=== PATIENT | male | born 1990 | race African-American/Black ===

== ENCOUNTER 2019-04-06 17:15 | Emergency (ER) | payer OTHER ==
[~2019-04-06] VITALS: Ht 190.5 cm; Wt 104.0 kg
[~2019-04-06 17:15] MED LIST: MELO15TA3 PO; MINI2CAP PO; NEUR300C PO; NO MEDICATION; TRAZ100T2 PO; ZOLO100T PO; ZOLO50TA PO
[2019-04-06] MEDS ORDERED: IBUP200T45 PO (18:19)
[2019-04-06] MEDS ORDERED: KETOROLAC 60 MG/2 ML VIAL (J1885) IM ONE (18:45)
[2019-04-06] MEDS ORDERED: LIDOCAINE 5% (LIDODERM) PATCH TD ONE (18:45)
[2019-04-06] MEDS ORDERED: diazePAM 10 MG TAB PO ONE (18:45)
[2019-04-06] MEDS ORDERED: ROBA500T PO (18:48)
[2019-04-06] MEDS ORDERED: NAPR-837 PO (18:48)
[2019-04-06 19:20] VITALS: BP 118/62
[2019-04-06] MEDS ORDERED: **NOTE PATIENT COMMENT** MISC XX SCH (21:00)
== END 2019-04-06 19:21 | disposition home or self-care (01) ==
LOC: M ED 17:15
DX: S39.012A Strain of muscle, fascia and tendon of lower back, initial encounter (principal); X58.XXXA Exposure to other specified factors, initial encounter; Y92.89 Other specified places as the place of occurrence of the external cause; Z88.1 Allergy status to other antibiotic agents; Z88.2 Allergy status to sulfonamides; Z88.8 Allergy status to other drugs, medicaments and biological substances; F17.210 Nicotine dependence, cigarettes, uncomplicated
CPT/HCPCS: 96372; 99283; J1885

== ENCOUNTER 2019-07-30 22:08 | Emergency (ER) | payer OTHER ==
[~2019-07-30] VITALS: Ht 190.5 cm; Wt 114.5 kg
[2019-07-30 22:08] VITALS: BP 133/62
[~2019-07-30 22:08] MED LIST changes: +IBUP200T45 PO; +NAPR-837 PO; +ROBA500T PO
[2019-07-30] MEDS ORDERED: ACET-683 PO (22:14)
[2019-07-30] MEDS ORDERED: ONDANSETRON 4 MG ORAL DISINTEGRATING TAB (Q0162 PER 1MG) PO ONE (22:30)
[2019-07-30] MEDS ORDERED: ACETAMINOPHEN 500 MG TAB PO ONE (22:30)
[2019-07-30] MEDS ORDERED: AMOX500C PO (22:48)
[2019-07-30] MEDS ORDERED: AMOXICILLIN 500 MG CAP PO ONE (23:00)
[2019-07-30 23:06] LABS: INFLUENZA A AMPLIFICATION NEGATIVE (NEGATIVE); INFLUENZA B AMPLIFICATION NEGATIVE (NEGATIVE)
[2019-07-30] MEDS ORDERED: ONDA4TAB6 PO (23:11)
--- NOTE | 2019-07-31 08:16 | REP ---
Clinical: Cough and fever. Technique: PA and lateral. Comparison: None. Findings: Lateral view best suggests left lower lobe atelectasis/early infiltrate and correlation is recommended. No further consolidation, effusion, or pneumothorax. Mediastinum and cardiac silhouette normal. Skeletal structures intact. Impression: Suspected left lower lobe infiltrate/atelectasis. Electronically Signed by Jignesh Henry MD 07/31/2019 08:08 A
== END 2019-07-30 23:15 | disposition home or self-care (01) ==
LOC: M ED 22:08
DX: J18.9 Pneumonia, unspecified organism (principal); Z88.2 Allergy status to sulfonamides; Z88.8 Allergy status to other drugs, medicaments and biological substances; F17.210 Nicotine dependence, cigarettes, uncomplicated; Z20.89 Contact with and (suspected) exposure to other communicable diseases
CPT/HCPCS: 71046; 87502; 99283; Q0162

== ENCOUNTER 2020-02-27 03:13 | Emergency (ER) | payer OTHER ==
[~2020-02-27 03:13] MED LIST changes: +ACET-683 PO; +AMOX500C PO; +ONDA4TAB6 PO
[2020-02-27] MEDS ORDERED: NS 1,000 ML IV ONE ×3 (03:15→04:30)
[2020-02-27] MEDS ORDERED: diphenhydrAMINE 50MG/ML VIAL (J1200) IM ONE (03:15)
[2020-02-27] MEDS ORDERED: LORazepam 2 MG/ML VIAL IM ONE (03:15)
[2020-02-27] MEDS ORDERED: HALOPERIDOL 5MG/ML VIAL (J1630 PER 1) IM ONE (03:15)
[2020-02-27] MEDS ORDERED: HALOPERIDOL 5MG/ML VIAL (J1630 PER 1) As Ordered ONE (03:19)
[2020-02-27] MEDS ORDERED: LORazepam 2 MG/ML VIAL IV STA (03:26)
[2020-02-27 03:33] LABS: BASO % 0.4 % (0.0-1.0); EOS # 0.1 10^3/uL (0.0-0.5); EOS % 1.4 % (0.0-3.0); HEMATOCRIT 41.3 % (42.0-52.0); HEMOGLOBIN 13.9 g/dl (13.5-17.5); LYMPH # 3.1 10^3/uL (1.5-5.0); LYMPH % 32.2 % (24.0-44.0); MEAN CORPUSCULAR HEMOGLOBIN 28.6 pg (27.0-33.0); MEAN CORPUSCULAR HGB CONC 33.7 g/dl (32.0-36.5); MONO # 0.6 10^3/uL (0.0-0.8); MONO % 6.1 % (0.0-5.0); NEUTROPHILS # 5.8 10^3/uL (1.5-8.5); NEUTROPHILS % 59.4 % (36.0-66.0); PLATELET COUNT, AUTOMATED 229 10^3/uL (150-450); RED BLOOD COUNT 4.86 10^6/uL (4.30-6.10); WHITE BLOOD COUNT 9.7 10^3/uL (4.0-10.0)
[2020-02-27 04:02] LABS: ACETAMINOPHEN LEVEL < 2.0 UG/ML (10.0-30.0); ALBUMIN 4.6 GM/DL (3.2-5.2); ALT/SGPT 37 U/L (12-78); AMPHETAMINES LEVEL URINE NEGATIVE (NEGATIVE); BARBITURATES URINE NEGATIVE (NEGATIVE); BENZODIAZEPINES URINE NEGATIVE (NEGATIVE); BILIRUBIN,DIRECT 0.1 MG/DL (0.0-0.2); BILIRUBIN,TOTAL 0.4 MG/DL (0.2-1.0); BLOOD UREA NITROGEN 13 MG/DL (7-18); CALCIUM LEVEL 8.8 MG/DL (8.5-10.1); CANNABINOIDS URINE POSITIVE (NEGATIVE); CARBON DIOXIDE LEVEL 20 MEQ/L (21-32); CHLORIDE LEVEL 110 MEQ/L (98-107); COCAINE METABOLITE URINE NEGATIVE (NEGATIVE); CPK CREATINE PHOSPHOKINASE 312 U/L (39-308); ETHYL ALCOHOL (ETHANOL) 0.262 % (0.000-0.010); GLOMERULAR FILTRATION RATE > 60.0 (>60); GLUCOSE, FASTING 72 MG/DL (70-100); METHADONE URINE NEGATIVE (NEGATIVE); OPIATES URINE NEGATIVE (NEGATIVE); PHENCYCLIDINE URINE NEGATIVE (NEGATIVE); POTASSIUM SERUM 3.6 MEQ/L (3.5-5.1); SALICYLATE LEVEL 3.4 MG/DL (5.0-30.0); SODIUM LEVEL 146 MEQ/L (136-145); THYROID STIMULATING HORMONE 0.976 uIU/ML (0.358-3.740); TOTAL PROTEIN 8.6 GM/DL (6.4-8.2)
--- NOTE | 2020-02-27 04:28 | REPVR ---
PROCEDURE INFORMATION: Exam: CT Head Without Contrast Exam date and time: 02/27/2020 3:52 AM Age: 29 years old Clinical indication: Altered mental status/memory loss; Confusion or disorientation TECHNIQUE: Imaging protocol: Computed tomography of the head without contrast. Radiation optimization: All CT scans at this facility use at least one of these dose optimization techniques: automated exposure control; mA and/or kV adjustment per patient size (includes targeted exams where dose is matched to clinical indication); or iterative reconstruction. COMPARISON: No relevant prior studies available. FINDINGS: Brain: Normal. No hemorrhage. Unremarkable white matter. No mass effect. Ventricles: Normal. No ventriculomegaly. Bones/joints: Unremarkable. No acute fracture. Sinuses: Left maxillary sinus mucous retention cyst or polyp measures 1.9 centimetres. Mastoid air cells: Visualized mastoid air cells are well aerated. Soft tissues: Unremarkable. IMPRESSION: No acute intracranial abnormality. Electronically signed by: Isidro Winston On 02/27/2020 04:28:23 AM
--- NOTE | 2020-02-27 04:31 | REPVR ---
PROCEDURE INFORMATION: Exam: CT Cervical Spine Without Contrast Exam date and time: 02/27/2020 3:52 AM Age: 29 years old Clinical indication: Neck pain; Additional info: Altered mental status TECHNIQUE: Imaging protocol: Computed tomography images of the cervical spine without contrast. Radiation optimization: All CT scans at this facility use at least one of these dose optimization techniques: automated exposure control; mA and/or kV adjustment per patient size (includes targeted exams where dose is matched to clinical indication); or iterative reconstruction. COMPARISON: No relevant prior studies available. FINDINGS: Vertebrae: Nonspecific straightening. Vertebral body height and AP alignment is preserved. Discs/Spinal canal/Neural foramina: No definite significant central canal stenosis within limitations of technique. Soft tissues: Unremarkable. Lungs: Lung apices are normal. Pleural space: No visible pneumothorax. IMPRESSION: No acute osseous abnormality. Electronically signed by: Isidro Winston On 02/27/2020 04:31:07 AM
--- NOTE | 2020-02-27 07:55 | ECGEPIP ---
[facility] - ED Test Date: 2020-02-27 Pat Name: ALISSA ROSARIO Department: Room: - Gender: Male [employer]: : [id number] Requested By: CLAUDE Maria Order Number: [id number] Reading MD: Huber Andujar Measurements Intervals [place] Rate: 97 P: SC: 0 QRS: 65 QRSD: 98 T: 56 QT: 367 QTc: 468 Interpretive Statements SINUS RHYTHM POSSIBLE INCOMPLETE RIGHT BUNDLE BRANCH BLOCK ST ELEVATION, PROBABLY EARLY REPOLARIZATION NO PRIORS FOR COMPARISON Electronically Signed on 02-27-2020 7:55:10 EDT by Huber Andujar
[2020-02-27] MEDS ORDERED: AMMONIA AROMATIC INHALANT As Ordered ONE ×2 (12:15→16:01)
[2020-02-27 16:00] VITALS: BP 98/49
== END 2020-02-27 17:09 | disposition home or self-care (01) ==
LOC: M ED 03:13
DX: F10.120 Alcohol abuse with intoxication, uncomplicated (principal); F19.120 Other psychoactive substance abuse with intoxication, uncomplicated; F99 Mental disorder, not otherwise specified; Z88.2 Allergy status to sulfonamides; Z88.8 Allergy status to other drugs, medicaments and biological substances
CPT/HCPCS: 36600; 70450; 72125; 80048; 80076; 80307; 82550; 82803; 83789; 84443; 85025; 93005; 93041; 94760; 96361; 96372; 96374; 99285; G0480; J1200; J1630; J2060